=== PATIENT | female | born 1995 | race Caucasian/White ===

== ENCOUNTER 2016-12-04 23:08 | Emergency (ER) | payer MEDICAID, OTHER ==
[~2016-12-04] VITALS: Ht 157.5 cm; Wt 40.0 kg
[2016-12-04 23:10] VITALS: BP 144/86; PULSE 93; RESP 16; TEMP 98.1; O2SAT 99
[2016-12-05] MEDS ORDERED: TETANUS/DIPHTHERIA TOXOID ADULT 0.5 ML VIAL IM ONE (00:45)
[2016-12-05] MEDS ORDERED: TOBRAMYCIN SULFATE 0.3% OPTH OINT 3.5 GM TUBE RIGHT EYE ONE (00:45)
[2016-12-05] MEDS ORDERED: TOBR.3%O RIGHT EYE (00:46)
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
[2016-12-05] MEDS ORDERED: ACETAMINOPHEN/HYDROcodone 325 MG/5 MG TAB PO ONE (01:00)
== END 2016-12-05 01:07 | disposition home or self-care (01) ==
LOC: NEPB 23:08
DX: S05.01XA Injury of conjunctiva and corneal abrasion without foreign body, right eye, initial encounter (principal); H11.31 Conjunctival hemorrhage, right eye; Y04.2XXA Assault by strike against or bumped into by another person, initial encounter; Z23 Encounter for immunization
CPT/HCPCS: 90471; 90714

== ENCOUNTER 2017-07-25 22:53 | Emergency (ER) | payer SELFPAY ==
[~2017-07-25] VITALS: Ht 157.5 cm; Wt 47.0 kg
[~2017-07-25 22:53] MED LIST: TOBR.3%O RIGHT EYE
[2017-07-25 22:56] VITALS: BP 144/73; PULSE 114; RESP 16; TEMP 98.3; O2SAT 100
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
[2017-07-26 00:50] VITALS: PULSE 66; RESP 14; O2SAT 100
== END 2017-07-26 01:01 | disposition home or self-care (01) ==
LOC: NEPD 22:53
DX: S01.332A Puncture wound without foreign body of left ear, initial encounter (principal); R00.0 Tachycardia, unspecified; F17.200 Nicotine dependence, unspecified, uncomplicated; Z86.59 Personal history of other mental and behavioral disorders; X58.XXXA Exposure to other specified factors, initial encounter
CPT/HCPCS: 99282

== ENCOUNTER 2018-02-22 18:04 | Emergency (ER) | payer SELFPAY ==
[2018-02-22 18:18] VITALS: BP 138/64; PULSE 74; RESP 16; TEMP 98.6; O2SAT 100
[2018-02-22] MEDS ORDERED: IBUP-232 PO (19:04)
[2018-02-22] MEDS ORDERED: PENI500T PO (19:04)
--- NOTE | 2018-02-22 19:04 | PD ---
HPI Chief Complaint: Oral / Dental Pain or Problem Time Seen by Provider: 18:22 Travel History International Travel<30 days: No Contact w/Intl Traveler<30days: No Traveled to known affect area: No History of Present Illness HPI 22-year-old female arrives with dental pain for 3 days. Swelling reported for 1 day. The area of swelling is tender to palpation. Pain is constant. Timing is continuous. She denies fever. 2 or 3 times daily brushing of the teeth has not been helping much. PFSH Past Medical History ADHD: Yes Asthma: No Anxiety: Yes Depression: Yes Cancer: No Cardiovascular Problems: No Diabetes: No Diminished Hearing: No Endocrine: No Genitourinary: No Immune Disorder: No Implanted Vascular Access Dvce: No Musculoskeletal: No Neurologic: No Psychiatric: No Reproductive: No Respiratory: No Immunizations Current: Yes ?: Not LMP: 02/15/18 Menopausal: No : 3 Para: 1 Miscarriage: 1 Past Surgical History Other Surgery: No Social History Alcohol Use: No Tobacco Use: Yes (1/2 PPD) Substance Use: Yes (marijuana) Allergies-Medications (Allergen,Severity, Reaction): Coded Allergies: No Known Allergies (Unverified , 07/25/17) Reported Meds & Prescriptions Reported Meds & Active Scripts Active Ibuprofen 600 Mg Tab 600 Mg PO Q8HR PRN Penicillin V Potassium 500 Mg Tab 500 Mg PO Q8H 7 Days Review of Systems Except as stated in HPI: all other systems reviewed are Neg General / Constitutional: No: Fever Physical Exam Narrative GENERAL: 22-year-old female pleasant no acute distress ENT: Dentition is in good repair generally the lower left second premolar is tender to palpation. Tenderness along the body of the mandible is also present in that area with minimal swelling consistent with dental abscess. Vital Signs Date Time Temp Pulse Resp B/P (MAP) Pulse Ox O2 Delivery O2 Flow Rate FiO2 02/22/18 18:18 98.6 74 16 138/64 (88) 100 SKIN: Warm and dry. HEAD: Atraumatic. Normocephalic. EYES: Pupils equal and round. No scleral icterus. No injection or drainage. ENT: No nasal bleeding or discharge. Mucous membranes pink and moist. NECK: Trachea midline. No JVD. CARDIOVASCULAR: Regular rate and rhythm. RESPIRATORY: No accessory muscle use. Clear to auscultation. Breath sounds equal bilaterally. GASTROINTESTINAL: Abdomen soft, non-tender, nondistended. Hepatic and splenic margins not palpable. MUSCULOSKELETAL: Extremities without clubbing, cyanosis, or edema. No obvious deformities. NEUROLOGICAL: Awake and alert. No obvious cranial nerve deficits. Motor grossly within normal limits. Five out of 5 muscle strength in the arms and legs. Normal speech. PSYCHIATRIC: Appropriate mood and affect; insight and judgment normal. Data Data Last Documented VS Vital Signs Date Time Temp Pulse Resp B/P (MAP) Pulse Ox O2 Delivery O2 Flow Rate FiO2 02/22/18 18:18 98.6 74 16 138/64 (88) 100 Orders Orders Penicillin V Potassium (Veetids) (02/22/18 19:15) Ed Discharge Order (02/22/18 19:05) Ketorolac Inj (Toradol Inj) (02/22/18 19:15) [facility] Medical Decision Making Medical Screen Exam Complete: Yes Emergency Medical Condition: Yes Medical Record Reviewed: Yes Differential Diagnosis Dental abscess, dental caries, dental fracture Narrative Course Patient has dental caries with a small abscess. Penicillin prescription. Toradol injection. Dental resources photocopy provided. Diagnosis Primary Impression: Dental abscess Referrals: Dentist call for appointment Med/Other Pt SpecificInfo: Prescription(s) given Scripts Ibuprofen (Ibuprofen) 600 Mg Tab 600 MG PO Q8HR Y for PAIN, #20 TAB 0 Refills Prov: Aiden Arriaga MD 02/22/18 Penicillin V Potassium (Penicillin V Potassium) 500 Mg Tab 500 MG PO Q8H for Infection for 7 Days, #21 TAB 0 Refills Prov: Aiden Arriaga MD 02/22/18 Disposition: 01 DISCHARGE HOME Condition: Stable Aiden Arriaga MD February 22, 2018 19:04
[2018-02-22] MEDS ORDERED: PENICILLIN V POTASSIUM 500 MG TAB PO ONE (19:15)
[2018-02-22] MEDS ORDERED: KETOROLAC TROMETHAMINE 60 MG/2 ML (IM) VIAL IM ONE (19:15)
== END 2018-02-22 19:49 | disposition home or self-care (01) ==
LOC: NEPD 18:04
DX: K04.7 Periapical abscess without sinus (principal); F17.200 Nicotine dependence, unspecified, uncomplicated; Z86.59 Personal history of other mental and behavioral disorders
CPT/HCPCS: 96372; 99283; J1885